=== PATIENT | male | born 1985 | race Caucasian/White ===

== ENCOUNTER 2017-03-23 18:50 | Emergency (ER) | payer OTHER ==
[2017-03-23 19:15] VITALS: BP 111/74
[2017-03-23] MEDS ORDERED: PREDNISONE 20 MG TABLET PO ONE (21:09)
[2017-03-23] MEDS ORDERED: AZITHROMYCIN 250 MG TABLET PO ONE (21:09)
--- NOTE | 2017-03-23 21:15 | ER Document Report ---
HPI - HPI Patient complains to provider of: sore throat Pain Level: 3 Context: 31 yo male c/o sore throat, fever, headache x 2 days. + recent air travel. no cough, post nasal drip Associated Symptoms: Chills, Fever, Headache. denies: Nonproductive cough, Productive cough, Nausea, Rhinnorhea, Sinus pain/drainage Exacerbated by: Denies Relieved by: Denies Similar symptoms previously: No Recently seen / treated by doctor: No - ROS Systems Reviewed and Negative: Yes All other systems reviewed and negative - DERM Skin Color: Normal Past Medical History - General Information source: Patient - Social History Smoking Status: Never Smoker Frequency of alcohol use: None Drug Abuse: None Lives with: Family Family History: CAD - at young age Patient has suicidal ideation: No Patient has homicidal ideation: No Renal/ Medical History: Denies: Hx Peritoneal Dialysis GI Medical History: Reports: Hx Gastroesophageal Reflux Disease Psychiatric Medical History: Reports: Hx Post Traumatic Stress Disorder Vertical Provider Document - CONSTITUTIONAL Agree With Documented VS: Yes Exam Limitations: No Limitations General Appearance: WD/WN, No Apparent Distress - INFECTION CONTROL TRAVEL OUTSIDE OF THE [place] IN LAST 30 DAYS: No - HEENT HEENT: Atraumatic, PERRLA, Pharyngeal Exudate, Pharyngeal Tenderness, Pharyngeal Erythema - NECK Neck: Lymphadenopathy-Left, Lymphadenopathy-Right - RESPIRATORY Respiratory: Breath Sounds Normal, No Respiratory Distress O2 Sat by Pulse Oximetry: 97 - CARDIOVASCULAR Cardiovascular: Regular Rate, Regular Rhythm - NEURO Level of Consciousness: Awake, Alert, Appropriate - DERM Integumentary: Warm, Dry, No Rash Course - Re-evaluation Re-evalutation: 03/23/17 21:17 no sign of Dwight's or peritonsillar abscess. no airway compromise. no drooling or hot potato voice. first dost of Abx and steroid given here. pt stable for discharge. - Vital Signs Vital signs: Temp Pulse Resp BP Pulse Ox 100.4 F 93 16 111/74 97 03/23/17 19:09 03/23/17 19:09 03/23/17 19:09 03/23/17 19:09 03/23/17 19:09 Discharge - Discharge Clinical Impression: Exudative pharyngitis Condition: Stable Disposition: HOME, SELF-CARE Instructions: Sore Throat ([facility]), Strep Throat ([facility]), Azithromycin ([facility]), Steroid Medication Additional Instructions: Take antibiotic as prescribed Oral steroid as prescribed Lozenges and salt water gargles Recommend new toothbrush in 2 days Prescriptions: Azithromycin [Zithromax 250 mg Tablet] 250 mg PO ASDIR #6 tablet Prednisone [Deltasone 20 mg Tablet] 2 tab PO BID #4 tablet
== END 2017-03-23 21:45 | disposition home or self-care (01) ==
LOC: ER 18:50
DX: J02.9 Acute pharyngitis, unspecified (principal); R51 Headache; R50.9 Fever, unspecified; R59.0 Localized enlarged lymph nodes
CPT/HCPCS: 99282; J7512